=== PATIENT | male | born 1990 | race Caucasian/White ===

== ENCOUNTER 2017-09-28 21:24 | Emergency (ER) | payer OTHER ==
[2017-09-28 21:40] VITALS: BP 126/78; PULSE 66; RESP 16; TEMP 98.4; O2SAT 98
--- NOTE | 2017-09-28 21:58 | EDPHY ---
H & P Smoking Status: Former smoker Time Seen by Provider: 09/28/17 21:53 HPI/ROS: CHIEF COMPLAINT: Left wrist laceration HISTORY OF PRESENT ILLNESS: 26-year-old male presents to the ER complaining of accidental laceration was left wrist when the blade from a tracer powder blender fell onto his left wrist. No fracture glass. He is complaining laceration to the the dorsal-radial aspect of the left wrist. Tetanus up-to-date. No foreign body sensation. No paresthesia. Occurred shortly prior to arrival PHYSICAL EXAM (Prior to examination, patient consented to physical exam, hands were washed and my usual and customary physical exam procedures followed) 1) GENERAL: Well-developed, well-nourished, alert and oriented. Appears to be in no acute distress. 2) HEAD: Normocephalic 3) HEENT: sclera anicteric 4) LUNGS: Breathing comfortably. 5) SKIN: Left hand dorsal radial aspect in between the 1st and 2nd metacarpals patient has a 3 cm well-demarcated superficial linear laceration . No signs of infection 6) MUSCULOSKELETAL: No musculoskeletal deficits distally 7) NEUROLOGIC: Full sensation distally (Nimco Torres) Constitutional: Initial Vital Signs Temperature (C) 36.9 C 09/28/17 21:36 Heart Rate 66 09/28/17 21:36 Respiratory Rate 16 09/28/17 21:36 Blood Pressure 126/78 H 09/28/17 21:36 O2 Sat (%) 98 09/28/17 21:36 O2 Delivery Mode Room Air Allergies/Adverse Reactions: amoxicillin Allergy (Verified 09/28/17 21:40) Home Medications: Medication Instructions Recorded NK [No Known Home Meds] 09/28/17 MDM/Departure - [facility] ED Course/Re-evaluation: Care of patient under supervision of secondary supervising physician Dr Rhoades . (Nimco Torres) Laceration Repair Procedure: Verbal Consent was obtained, Under sterile conditions, The patient had lidocaine with epinephrine used approximately 6ccs to local anesthetize the Left wrist 4cm Laceration. The wound was copiously irrigated with sterile fluid, the wound was explored for foreign bodies there were none visualized, the wound was explored with a sterile glove to the base. There are no deep structures involved, including no arterial injury. THREE 6.O Prolene interrupted Sutures were placed in this patient's laceration. He had good close approximation of the wound edges. He Tolerated this well. Patient understands to keep his wound clean, dry, protected. Watch for signs of infection. Sutures stay in place for 12 days. Understands he can return emergency room to have suture removal or his primary care doctor's office. No direct injection of water. Keep the wound clean. (Ernie Rhoades) - Depart Disposition: Home, Routine, Self-Care Clinical Impression: Laceration of left hand Qualifiers: Encounter type: initial encounter Foreign body presence: without foreign body Qualified Code(s): S61.412A - Laceration without foreign body of left hand, initial encounter Condition: Good Instructions: Care For Your Stitches (ED), Laceration (ED) Additional Instructions: Return to the ER if you develop redness, swelling, discharge, warmth to the wound, red streaks going up your arm, or any other symptoms that concern you. Return to the ER in 10 days for suture removal Referrals: Return, to the ER in 10 days for suture removal [Other] - 10/08/17
== END 2017-09-28 22:19 | disposition home or self-care (01) ==
PROC: 0HQEXZZ Repair Left Lower Arm Skin, External Approach (ICD-10-PCS; principal; 2017-09-28)
DX: S61.412A Laceration without foreign body of left hand, initial encounter (principal); Z87.891 Personal history of nicotine dependence; W45.8XXA Other foreign body or object entering through skin, initial encounter